=== PATIENT | female | born 1975 | race Caucasian/White ===

== ENCOUNTER 2017-12-02 21:18 | Emergency (ER) | payer SELFPAY ==
[2017-12-02 21:22] VITALS: Ht 167.6 cm
[2017-12-02 23:02] VITALS: BP 121/75
== END 2017-12-02 23:02 | disposition home or self-care (01) ==
LOC: ED 21:18
DX: L02.411 Cutaneous abscess of right axilla (principal); N75.1 Abscess of Bartholin's gland; R03.0 Elevated blood-pressure reading, without diagnosis of hypertension
CPT/HCPCS: J2001

== ENCOUNTER 2017-12-04 18:57 | Emergency (ER) | payer SELFPAY ==
[~2017-12-04] VITALS: Ht 170.2 cm; Wt 102.1 kg
[2017-12-04 19:00] VITALS: BP 115/90; Ht 170.2 cm; Wt 102.1 kg
== END 2017-12-04 20:14 | disposition home or self-care (01) ==
LOC: ED 18:57
DX: Z48.01 Encounter for change or removal of surgical wound dressing (principal)
CPT/HCPCS: J2001